=== PATIENT | male | born 1955 | race Caucasian/White ===

== ENCOUNTER 2017-08-28 13:45 | Inpatient (IN) | payer MEDICAID, OTHER ==
[~2017-08-28] VITALS: Ht 167.6 cm; Wt 71.4 kg
[2017-08-28 14:18] VITALS: BP 124/88; PULSE 80; RESP 22; TEMP 98.5; O2SAT 99
[2017-08-28 15:28] LABS: AUTOMATED NEUTROPHIL # 6.4 TH/MM3 (1.8-7.7); BASOPHIL % 0.4 % (0.0-2.0); EOSINOPHIL # 0.1 TH/MM3 (0-0.4); EOSINOPHIL % 1.2 % (0.0-4.0); HEMATOCRIT 44.6 % (39.0-51.0); HEMOGLOBIN 16.3 GM/DL (13.0-17.0); LYMPH % 20.2 % (9.0-44.0); LYMPHOCYTE # 1.8 TH/MM3 (1.0-4.8); MEAN CELL VOLUME 87.3 FL (80.0-100.0); MEAN CORPUSCULAR HEMOGLOBIN 31.9 PG (27.0-34.0); MEAN PLATELET VOLUME 8.4 FL (7.0-11.0); MONO % 6.9 % (0.0-8.0); MONOCYTE # 0.6 TH/MM3 (0-0.9); NEUT % 71.3 % (16.0-70.0); PLATELET COUNT 200 TH/MM3 (150-450); RED BLOOD COUNT 5.11 MIL/MM3 (4.50-5.90); RED CELL DISTRIBUTION WIDTH 12.5 % (11.6-17.2)
[2017-08-28 15:35] LABS: MEAN CORPUSCULAR HGB CONC 36.5 % (32.0-36.0)
[2017-08-28 15:46] LABS: AST (GOT) 19 U/L (15-37); BICARBONATE 26.1 MEQ/L (21.0-32.0); BLOOD UREA NITROGEN 5 MG/DL (7-18); CALCIUM 8.9 MG/DL (8.5-10.1); CHLORIDE 104 MEQ/L (98-107); CREATININE 0.93 MG/DL (0.60-1.30); GLOMERULAR FILTRATION RATE 83 ML/MIN (>89); GLUCOSE,RANDOM 81 MG/DL (74-106); SODIUM (NA) 138 MEQ/L (136-145)
[2017-08-28 15:58] LABS: ALKALINE PHOSPHATASE 105 U/L (45-117); ALT (GPT) 26 U/L (12-78); TOTAL BILIRUBIN ADULT 0.6 MG/DL (0.2-1.0); TOTAL PROTEIN 7.5 GM/DL (6.4-8.2)
[2017-08-28] MEDS ORDERED: LORazepam 1 MG TAB PO ONE ×2 (17:00→19:15)
--- NOTE | 2017-08-28 17:58 | PD ---
HPI Chief Complaint: Psychiatric Symptoms Time Seen by Provider: 17:01 Travel History International Travel<30 days: No Contact w/Intl Traveler<30days: No Traveled to known affect area: No History of Present Illness HPI 61-year-old male presents to the emergency department requesting medication refills and requesting to see psychiatry. He has history of bipolar disorder and has apparently been off of his medications for a few weeks. He is pacing around the room. He cannot get his thoughts out completely. He appears anxious. He is alert and oriented 4. He says he was sent here by [facility] and does not know why. Patient denies suicidal or homicidal ideations. Denies illicit drug use, EtOH, tobacco use. Denies auditory or visual hallucinations. Symptoms are moderate to severe in severity. Unknown onset. Unknown duration. No known relieving or aggravating factors. No primary care provider. Says he just moved here from [place]. No known allergies. History of chronic back pain and bipolar disorder. He can't tell me what medications he is on. He denies other emergent medical complaints. No other modifying factors or associated signs and symptoms. [facility] Past Medical History Diminished Hearing: No Social History Alcohol Use: No Tobacco Use: No Substance Use: No Allergies-Medications (Allergen,Severity, Reaction): Coded Allergies: No Known Allergies (Unverified , 08/28/17) Review of Systems Except as stated in HPI: all other systems reviewed are Neg Physical Exam Narrative GENERAL: Well-nourished, well-developed male patient, in no acute distress; anxious appearing, pacing SKIN: Warm and dry. HEAD: Atraumatic. Normocephalic. EYES: Pupils equal and round. ENT: Mucosa pink and moist. NECK: Supple. Trachea midline. CARDIOVASCULAR: Regular rate and rhythm. No murmur appreciated. RESPIRATORY: No accessory muscle use. Clear to auscultation. Breath sounds equal bilaterally. GASTROINTESTINAL: Abdomen soft, non-tender, nondistended. Hepatic and splenic margins not palpable. Bowel sounds are active 4 quadrants. MUSCULOSKELETAL: No obvious deformities. No clubbing. No cyanosis. No edema. NEUROLOGICAL: Awake and alert. Oriented 4. No obvious cranial nerve deficits. Motor grossly within normal limits. Normal speech. Moves all extremities. 5/5 strength to all extremities. PSYCHIATRIC: No delusional thought processes. No hallucinations. Data Data Last Documented VS Vital Signs Date Time Temp Pulse Resp B/P (MAP) Pulse Ox O2 Delivery O2 Flow Rate FiO2 08/28/17 14:18 98.5 80 22 124/88 (100) 99 Orders Orders Complete Blood Count With Diff (08/28/17 14:23) Comprehensive Metabolic Panel (08/28/17 14:23) Thyroid Stimulating Hormone (08/28/17 14:23) Psych Screen (08/28/17 14:23) Drug Screen, Random Urine (08/28/17 14:23) Lorazepam (Ativan) (08/28/17 17:00) Ct Brain W/O Iv Contrast(Rout) (08/28/17 ) Labs Laboratory Tests Test 08/28/17 15:00 White Blood Count 9.0 TH/MM3 Red Blood Count 5.11 MIL/MM3 Hemoglobin 16.3 GM/DL Hematocrit 44.6 % Mean Corpuscular Volume 87.3 FL Mean Corpuscular Hemoglobin 31.9 PG Mean Corpuscular Hemoglobin Concent 36.5 % Red Cell Distribution Width 12.5 % Platelet Count 200 TH/MM3 Mean Platelet Volume 8.4 FL Neutrophils (%) (Auto) 71.3 % Lymphocytes (%) (Auto) 20.2 % Monocytes (%) (Auto) 6.9 % Eosinophils (%) (Auto) 1.2 % Basophils (%) (Auto) 0.4 % Neutrophils # (Auto) 6.4 TH/MM3 Lymphocytes # (Auto) 1.8 TH/MM3 Monocytes # (Auto) 0.6 TH/MM3 Eosinophils # (Auto) 0.1 TH/MM3 Basophils # (Auto) 0.0 TH/MM3 CBC Comment AUTO DIFF Differential Comment AUTO DIFF CONFIRMED Platelet Estimate NORMAL Platelet Morphology Comment NORMAL Blood Urea Nitrogen 5 MG/DL Creatinine 0.93 MG/DL Random Glucose 81 MG/DL Total Protein 7.5 GM/DL Albumin 4.0 GM/DL Calcium Level 8.9 MG/DL Alkaline Phosphatase 105 U/L Aspartate Amino Transf (AST/SGOT) 19 U/L Alanine Aminotransferase (ALT/SGPT) 26 U/L Total Bilirubin 0.6 MG/DL Sodium Level 138 MEQ/L Potassium Level 3.9 MEQ/L Chloride Level 104 MEQ/L Carbon Dioxide Level 26.1 MEQ/L Anion Gap 8 MEQ/L Estimat Glomerular Filtration Rate 83 ML/MIN Thyroid Stimulating Hormone 3rd Gen 1.870 uIU/ML Urine Opiates Screen NEG Urine Barbiturates Screen NEG Urine Amphetamines Screen NEG Urine Benzodiazepines Screen NEG Urine Cocaine Screen NEG Urine Cannabinoids Screen NEG MDM Medical Decision Making Medical Screen Exam Complete: Yes Emergency Medical Condition: Yes Medical Record Reviewed: Yes Differential Diagnosis Bipolar disorder, manic, medication refill, encounter for psychological evaluation Narrative Course Patient presents voluntarily. Physical examination and vital signs are essentially unremarkable. Patient has no medical complaints to report. Psych screen has been ordered. If the laboratory results are unremarkable, the patient will be medically cleared for psychiatric evaluation and disposition. Patient has never been seen here before. I will order CT scan to rule out acute process. CT head ordered. 1 mg by mouth Ativan was previously ordered. 1848: CT head with no acute findings. Patient medically cleared for psych evaluation. Diagnosis Primary Impression: Encounter for psychological evaluation Condition: Stable Leta Pascual Aug 28, 2017 17:58
--- NOTE | 2017-08-28 18:42 | RADRPT ---
EXAM DATE/TIME: 08/28/2017 18:24 [facility] COMPARISON: No previous studies available for comparison. INDICATIONS : Altered mental status. RADIATION DOSE: 36.73 CTDIvol (mGy) MEDICAL HISTORY : Bipolar disorder. SURGICAL HISTORY : None. ENCOUNTER: Initial ACUITY: 1 day PAIN SCALE: 0/10 LOCATION: cranial TECHNIQUE: Multiple contiguous axial images were obtained of the head. Using automated exposure control and adj ustment of the mA and/or kV according to patient size, radiation dose was kept as low as reasonably a chievable to obtain optimal diagnostic quality images. DICOM format image data is available electro nically for review and comparison. FINDINGS: CEREBRUM: The ventricles are normal for age. No evidence of midline shift, mass lesion, hemorrhage or acute in farction. No extra-axial fluid collections are seen. POSTERIOR FOSSA: The cerebellum and brainstem are intact. The 4th ventricle is midline. The cerebellopontine angle i s unremarkable. EXTRACRANIAL: The visualized portion of the orbits is intact. SKULL: The calvaria is intact. No evidence of skull fracture. CONCLUSION: 1. Negative noncontrast CT brain. Stewart Mondragon MD on August 28, 2017 at 18:40 Board Certified Radiologist. This report was verified electronically.
[2017-08-29 02:43] VITALS: BP 128/81; PULSE 61; RESP 16; TEMP 98.7; O2SAT 97
[2017-08-29] MEDS ORDERED: LORazepam 2 MG/ML VIAL IM ONE (02:45)
[2017-08-29 06:30] VITALS: BP_SYST 143; BP_SYST 153; BP_DIAS 79; BP_DIAS 89; PULSE 69; PULSE 82; RESP 17; TEMP 98.1; O2SAT 100
--- NOTE | 2017-08-29 14:08 | PD ---
History of Present Illness Chief Complaint: Psychiatric Symptoms Time Seen by Provider: 13:20 Travel History International Travel<30 Days: No Contact w/Intl Traveler<30days: No Known affected area: No Legal Status Legal Status: Voluntary History of Present Illness: History of Present Illness HPI 61-year-old, , white male, with reported history of bipolar disorder, alcohol abuse in sustained remission, who moved to [place] 4 months ago and has since he ran out of his psychiatric medication , who presents to the emergency department on a voluntary status requesting medication refills and requesting to see psychiatry. He reports that he went to the Medicaid office in order to get his medical card and was referred to [facility]. While in the ED the provider reports that" the patient was pacing around the room, cannot get his thoughts are completely, appears anxious." He was given Ativan in the ED. EMR is reviewed. No previous contact with [facility] psychiatry. Current toxicology is negative for any substances. Patient is seen. He is alert, oriented, dressed in hospital gown and maintaining basic hygiene. He is observed pacing around the room and appears anxious. He maintains his head in a downward posture with limited amount of eye contact. He is irritable. His speech is clear although is over inclusive. He answers most questions with either I don't know or I don't remember" and requires multiple attempts for him to answer the question. An example is he is unable to say whether he has a Medicare card or not. Also when asked about previous medication he does state that in the past he has been treated with Depakote, Cymbalta, trazodone, Ambien, Klonopin, Risperdal, and gabapentin amongst others. He is unable to tell me what were his last prescribed medication. There is no psychosis, no delusional material elicited, no paranoia. He does not present any suicidal or homicidal ideation although he does state " that I just don't want to be". He also reports that for the past several weeks he has been unable to sleep for more than 1-2 hours, has had mood swings and mood lability, decreased appetite with weight loss, can't think straight, irritable, anxious with panic attacks. PFSH Past Medical History Diminished Hearing: No Psychiatric History Psychiatric History Hx Psychiatric Treatment: WAS DIAGNOSED WITH BIPOLAR IN THE . HAD ALWAYS RECIEVED OUTPATIENT CARE IN [place]. Denies any history of inpatient treatment. Denies any previous suicide attempt. History of Inpatient Treatment: No Guns or firearms in home: No Social History Born in [place]. since the and has no children. Completed the 10th grade education. 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 Has been on disability for 20 years due to psychiatric reasons. He moved to [place] for months ago for unknown reason. Lives by himself. Hx Alcohol Use: No Hx Tobacco Use: No Hx Substance Use: Yes (history of alcohol abuse. Sober since 1992. Has used AA in the past.) Substance Use Type: Alcohol Hx of Substance Use Treatment: Yes Family Psychiatric History Negative Allergies-Medications (Allergen,Severity, Reaction): Coded Allergies: No Known Allergies (Unverified , 08/28/17) Review of Systems Psychiatric: COMPLAINS OF: Anxiety, Mood changes Except as stated in HPI: all other systems reviewed are Neg Mental Status Examination Appearance: Appropriate (in hospital [facility]) Consciousness: Alert Orientation: x4 Motor Activity: Normal gait Speech: Unremarkable, Other (overinclusive) Language: Adequate Fund of Knowledge: Adequate Attention and Concentration: Other (difficulty concentration) Memory: Impaired (answers most questions with " I don't remember") Mood: Anxious, Irritable Affect: Anxious Thought Process & Associations: Intact Thought Content: Appropriate Hallucination Type: None Delusion Type: None Suicidal Ideation: No Suicidal Plan: No Suicidal Intention: No Homicidal Ideation: No Homicidal Plan: No Homicidal Intention: No Insight: Adequate Judgment: Impulsive [facility] Medical Decision Making Assessment/Plan 61-year-old, , white male, with reported history of bipolar disorder, alcohol abuse in sustained remission, who moved to [place] 4 months ago and has since he ran out of his psychiatric medication , who presents to the emergency department on a voluntary status requesting medication refills and requesting to see psychiatry. He also reports that for the past several weeks he has been unable to sleep for more than 1-2 hours, has had mood swings and mood lability, decreased appetite with weight loss, can't think straight, irritable, anxious with panic attacks. At this time the patient meets criteria for inpatient psychiatric treatment for further evaluation, stabilization, and to initiate treatment with medications. Orders Orders Complete Blood Count With Diff (08/28/17 14:23) Comprehensive Metabolic Panel (08/28/17 14:23) Thyroid Stimulating Hormone (08/28/17 14:23) Psych Screen (08/28/17 14:23) Drug Screen, Random Urine (08/28/17 14:23) Lorazepam (Ativan) (08/28/17 17:00) Ct Brain W/O Iv Contrast(Rout) (08/28/17 ) Lorazepam (Ativan) (08/28/17 19:15) Lorazepam Inj (Ativan Inj) (08/29/17 02:45) Diet Regular Basic (08/29/17 Breakfast) Diet Regular Basic (08/29/17 Lunch) Results Vital Signs Date Time Temp Pulse Resp B/P (MAP) Pulse Ox O2 Delivery O2 Flow Rate FiO2 08/29/17 06:30 98.1 69 17 143/79 (100) 100 Room Air 08/29/17 02:43 98.7 61 16 128/81 (97) 97 Room Air 08/28/17 14:18 98.5 80 22 124/88 (100) 99 Laboratory Tests Test 08/28/17 15:00 White Blood Count 9.0 Red Blood Count 5.11 Hemoglobin 16.3 Hematocrit 44.6 Mean Corpuscular Volume 87.3 Mean Corpuscular Hemoglobin 31.9 Mean Corpuscular Hemoglobin Concent 36.5 Red Cell Distribution Width 12.5 Platelet Count 200 Mean Platelet Volume 8.4 Neutrophils (%) (Auto) 71.3 Lymphocytes (%) (Auto) 20.2 Monocytes (%) (Auto) 6.9 Eosinophils (%) (Auto) 1.2 Basophils (%) (Auto) 0.4 Neutrophils # (Auto) 6.4 Lymphocytes # (Auto) 1.8 Monocytes # (Auto) 0.6 Eosinophils # (Auto) 0.1 Basophils # (Auto) 0.0 CBC Comment AUTO DIFF Differential Comment AUTO DIFF CONFIRMED Platelet Estimate NORMAL Platelet Morphology Comment NORMAL Blood Urea Nitrogen 5 Creatinine 0.93 Random Glucose 81 Total Protein 7.5 Albumin 4.0 Calcium Level 8.9 Alkaline Phosphatase 105 Aspartate Amino Transf (AST/SGOT) 19 Alanine Aminotransferase (ALT/SGPT) 26 Total Bilirubin 0.6 Sodium Level 138 Potassium Level 3.9 Chloride Level 104 Carbon Dioxide Level 26.1 Anion Gap 8 Estimat Glomerular Filtration Rate 83 Thyroid Stimulating Hormone 3rd Gen 1.870 Urine Opiates Screen NEG Urine Barbiturates Screen NEG Urine Amphetamines Screen NEG Urine Benzodiazepines Screen NEG Urine Cocaine Screen NEG Urine Cannabinoids Screen NEG Diagnosis Primary Impression: Encounter for psychological evaluation Additional Impressions: Bipolar disorder Alcohol dependence Admitting Information Admitting Physician Requests: Admit Condition: Stable Problem Qualifiers Additional Impressions: Bipolar disorder Qualified Codes: F31.62 - Bipolar disorder, current episode mixed, moderate Alcohol dependence Qualified Codes: F10.21 - Alcohol dependence, in remission Brii Wallace Aug 29, 2017 14:08
[2017-08-29] MEDS ORDERED: MAGNESIUM HYDROXIDE SUSP 30 ML CUP PO PRN (14:15)
[2017-08-29] MEDS ORDERED: ALUMINUM/MAGNESIUM/SIMETH 30 ML CUP PO PRN (14:15)
[2017-08-29 14:46] VITALS: BP 132/92; TEMP 97.8; O2SAT 99
[2017-08-29 14:50] VITALS: BP 132/92; PULSE 66; RESP 22; O2SAT 99
[2017-08-29] MEDS ORDERED: OLANZapine ODT 10 MG TAB PO ONE (15:00)
[2017-08-29 17:43] VITALS: BP 130/69; PULSE 77; RESP 20; TEMP 97.7; O2SAT 99
[2017-08-30 05:22] VITALS: BP 133/70; PULSE 72; RESP 16; TEMP 98; O2SAT 99
[2017-08-30] MEDS ORDERED: PNEUMOCOCCAL POLYVALENT INJ 25 MCG/0.5 ML SYR IM ONE (10:00)
[2017-08-30] MEDS ORDERED: INFLUENZA VIRUS VACCINE (QUADRIVALENT) 0.5 ML SYR IM ONE (10:00)
--- NOTE | 2017-08-30 10:19 | HHI.HP ---
Provisional Diagnosis Admission Date Aug 29, 2017 at 14:13 [place] [facility] I. 1. Bipolar disorder, presently manic, moderate 2. History of alcohol use disorder [facility] II. Deferred Certification of Person's Competence To Provide Express and Informed Consent I have personally examined Basim Vazquez , a person being served at [facility] on, Aug 30, 2017 10:19. Express and informed consent means consent voluntarily given in writing, by a competent person, after sufficient explanation and disclosure of the subject matter involved to enable the person to make a knowing and willful decision without any element of force, fraud, deceit, duress, or other form of constraint or coercion. This person is 18 years of age or older, is not now known to be incompetent to consent to treatment with a guardian advocate, and does not have a health care surrogate or proxy currently making medical treatment decisions. I have found this person to be one of the following: [x] Competent to provide express and informed consent, as defined above, for voluntary admission to this facility and is competent to provide express and informed consent for treatment. He/she has the consistent capacity to make well reasoned, willful, and knowing decisions concerning his or her medical or mental health treatment. The person fully and consistently understands the purpose of the admission for examination/placement and is fully capable of personally exercising all rights assured under [place] Incompetent to provide express and informed consent to voluntary admission, and this is incompetent to provide express and informed consent to treatment. The person must be transferred to involuntary status and a petition for a guardian advocate filed with the Circuit Court. [] Refusing to provide express and informed consent to voluntary admission but is competent to provide express and informed consent for treatment. The person must be discharged or transferred to involuntary status. Form shall be completed within 24 hours of a person's arrival at the receiving facility and filed in the clinical record of each person: 1. Admitted on a voluntary basis 2. Permitted to provide express and informed consent to his/her own treatment 3. Allowed to transfer from involuntary to voluntary status 4. Prior to permitting a person to consent to his or her own treatment after having been previously found incompetent to consent to treatment. History of Present Illness Capacity: Has Capacity Psych Chief Complaint: "All I need is something for the problems that I have." HPI Mr. Vazquez is a 61-year-old male with a reported history of bipolar disorder who presented to the emergency department voluntarily for psychiatric evaluation. He was evaluated by the psychiatric nurse practitioner who recommended admission to the inpatient psychiatric unit. Reviewing the electronic medical record, I note this is patient's first visit to [facility]. Patient seen and examined. Chart reviewed. Case discussed with nursing staff. On my examination today, the patient is quite irritable and somewhat oppositional. His speech is rapid and difficult to interrupt. His thought process is tangential with loosening of associations. He says of his mood state "it's worse than it's ever been." He complains of feeling "disconnected. " He reports poor sleep. Possibly some increased goal-directed activity. Denies any SI or HI. Denies any AVH. No delusional material elicited. No depressive symptoms. The remainder of the psychiatric ROS is negative. Complains of chronic back pain and herpes labialis. No other physical complaints. Past psychiatric history: The patient reports a history of bipolar disorder. He reports that he has been away from outpatient psychiatric treatment for several months, most recently in [place]. He denies a history of psychiatric admissions or suicide attempts. Patient is unsure of previous medication trials. We were unable to obtain medication list from pharmacy in [place] which included Cymbalta, trazodone, Ambien and Klonopin, although the patient has apparently not taken psychotropic medications in several months at least. Family history: The patient reports that his mother has some sort of mental illness although he is unsure of the diagnosis. No reported family history of suicide. Chemical dependency history: The patient reports that he quit drinking in 1992. He denies any substance use presently. Social history: Patient is presently living alone. He is single with no children. He denies any access to guns or firearms. He denies any or legal history. Review of Systems ROS Limitations: Poor Historian Except as stated in HPI: all other systems reviewed are Neg Past Family Social History Coded Allergies: No Known Allergies (Unverified , 08/28/17) Past Medical History Patient endorses a history of chronic neck and back pain on gabapentin and herpes labialis on acyclovir. Current Medications Medications (Trade) Dose Ordered Sig/Kishore Route Start Time Stop Time Status Last Admin (Tylenol) 650 mg Q4H PRN PO 08/29/17 14:15 (Milk Of Magnesia Liq) 30 ml DAILY PRN PO 08/29/17 14:15 (Mag-Al Plus Susp Liq) 30 ml Q6H PRN PO 08/29/17 14:15 Patient's Strengths (min. 2) In a monitored setting. Verbally fluent. Physical Exam Physical examination completed by ED provider. On my examination today, the patient appears to be in no acute physical distress. I do note characteristic herpes labialis lesions, particularly on his upper lip. No motor abnormalities noted. Labs and vitals reviewed: Vital Signs Vital Signs Date Time Temp Pulse Resp B/P (MAP) Pulse Ox O2 Delivery O2 Flow Rate FiO2 08/30/17 05:22 98.0 72 16 133/70 (91) 99 08/29/17 14:50 Room Air I/O 08/30/17 08/30/17 08/31/17 08:00 16:00 00:00 Intake Total 360 ml Balance 360 ml Lab Results Item Value Date Time White Blood Count 9.0 TH/MM3 08/28/17 1500 Hemoglobin 16.3 GM/DL 08/28/17 1500 Platelet Count 200 TH/MM3 08/28/17 1500 Sodium Level 140 MEQ/L 08/30/17 0850 Potassium Level 3.9 MEQ/L 08/30/17 0850 Chloride Level 106 MEQ/L 08/30/17 0850 Carbon Dioxide Level 27.0 MEQ/L 08/30/17 0850 Blood Urea Nitrogen 12 MG/DL 08/30/17 0850 Creatinine 0.87 MG/DL 08/30/17 0850 Estimat Glomerular Filtration Rate 90 ML/MIN 08/30/17 0850 Aspartate Amino Transf (AST/SGOT) 19 U/L 08/28/17 1500 Alanine Aminotransferase (ALT/SGPT) 26 U/L 08/28/17 1500 Alkaline Phosphatase 105 U/L 08/28/17 1500 Vitamin B12 Level 314 PG/ML 08/30/17 0850 25-Hydroxy Vitamin D Total 21.2 ng/ML L 08/30/17 0850 Thyroid Stimulating Hormone 3rd Gen 1.870 uIU/ML 08/28/17 1500 Urine Opiates Screen NEG 08/28/17 1500 Urine Barbiturates Screen NEG 08/28/17 1500 Urine Benzodiazepines Screen NEG 08/28/17 1500 Urine Amphetamines Screen NEG 08/28/17 1500 Urine Cocaine Screen NEG 08/28/17 1500 Urine Cannabinoids Screen NEG 08/28/17 1500 Mental Status Examination Appearance: Appropriate Consciousness: Alert Orientation: x4 Motor Activity: Other (no motor abnormalities noted) Speech: Rapid Language: Adequate Fund of Knowledge: Adequate Attention and Concentration: Easily Distracted Memory: Unremarkable Mood: Anxious, Irritable Affect: Irritable, Anxious Thought Process & Associations: Loose associations, Tangential Thought Content: Appropriate Hallucination Type: None Delusion Type: None Suicidal Ideation: No Suicidal Plan: No Suicidal Intention: No Homicidal Ideation: No Homicidal Plan: No Homicidal Intention: No Insight: Fair Judgment: Impulsive Assessment & Plan Problem List: (1) Bipolar disorder ICD Codes: F31.9 - Bipolar disorder, unspecified Status: Acute Assessment & Plan 61-year-old male with psychiatric history as detailed above who presents voluntarily for psychiatric evaluation. On my examination today, the patient presents in a manic state of moderate severity. Patient's most recent outpatient regimen was devoid of any mood stabilizing agent, and the patient is in need of mood stabilization now. I will plan to admit the patient to the inpatient unit for observation and stabilization. Admit inpatient. Voluntary status. Initiate Depakote ER 20mg/kg x 65.8kg ~= 1250mg daily for mood stabilization. LFTs and plt ok. Check a VPA and ammonia level after the appropriate interval. For further mood stabilization and to assist with sleep initiate Zyprexa Zydis 10 mg at bedtime with plans to titrate to effect. Check EKG for QTc. Resume acyclovir and gabapentin. Consult to the hospitalist for further medical management. Ativan as needed for anxiety, Cogentin as needed for EPS. R/B/A for meds discussed with patient. Vitals every shift. Counselor to see. Disposition planning. Estimated length of stay : 5-7 days. Discharge Planning Pending psychiatric stabilization Request HC Surrog/Guard Advoc?: No Problem Qualifiers (1) Bipolar disorder: Qualified Codes: F31.12 - Bipolar disorder, current episode manic without psychotic features, moderate Phan Ball MD Aug 30, 2017 10:19
[2017-08-30 10:22] LABS: BLOOD UREA NITROGEN 12 MG/DL (7-18); CALCIUM 8.8 MG/DL (8.5-10.1); CHLORIDE 106 MEQ/L (98-107); CREATININE 0.87 MG/DL (0.60-1.30); GLOMERULAR FILTRATION RATE 90 ML/MIN (>89); GLUCOSE,RANDOM 68 MG/DL (74-106); SODIUM (NA) 140 MEQ/L (136-145)
[2017-08-30 10:23] LABS: CHOLESTEROL 153 MG/DL (120-200); TRIGLYCERIDES 238 MG/DL (42-150)
[2017-08-30 10:49] LABS: LDL CHOLESTEROL 71 MG/DL (0-99)
[2017-08-30] MEDS ORDERED: LORazepam 2 MG/ML VIAL IM PRN (11:00)
[2017-08-30] MEDS: DIVALPROEX SODIUM E.R. 250 MG TAB PO SCH ×2 (11:14→11:47)
[2017-08-30] MEDS: DIVALPROEX SODIUM E.R. 500 MG TAB PO SCH (11:46)
[2017-08-30] MEDS: GABAPENTIN 300 MG CAP PO SCH ×2 (12:33→17:47)
[2017-08-30] MEDS: ACYCLOVIR 200 MG CAP PO SCH ×2 (12:59→21:44)
[2017-08-30] MEDS ORDERED: BENZTROPINE MESYLATE 1 MG TAB PO PRN (13:45)
[2017-08-30] MEDS ORDERED: BENZTROPINE MESYLATE 2 MG/2 ML VIAL IM PRN (13:45)
[2017-08-30 16:35] LABS: HEMOGLOBIN A1C 4.9 % (4.3-6.0)
--- NOTE | 2017-08-30 17:30 | PD.CONS ---
HPI Service [facility] Hospitalists Consult Requested By Psychiatry Reason for Consult Medical management Primary Care Physician No Primary Care Physician Diagnoses: History of Present Illness Mr. Vazquez is a pleasant 61-year-old male with a history of bipolar disorder, oral herpes, chronic back pain who was admitted due to bipolar disorder. Hospital service was consulted for medical management. At the time of this interview, patient is resting in bed. However he appears to be very anxious. He reports ap operator chronic back pain. He apparently has had extensive workup done including MRI studies in [place]. He has tried Lyrica before for neuropathic pain. However, gabapentin seems to work better. Additionally he reports that for oral is he has been using acyclovir p.o. for suppression. At the time of this interview, patient denies any chest pain, shortness of breath, fever or chills. Review of Systems Except as stated in HPI: all other systems reviewed are Neg Past Family Social History Allergies: Coded Allergies: No Known Allergies (Unverified , 08/28/17) Past Medical History Chronic back pain Bipolar disorder Oral herpes Past Surgical History No significant surgeries in the past Reported Medications Current Medications Medications (Trade) Dose Ordered Sig/Kishore Route Start Time Stop Time Status Last Admin (Tylenol) 650 mg Q4H PRN PO 08/29/17 14:15 08/30/17 22:12 (Milk Of Magnesia Liq) 30 ml DAILY PRN PO 08/29/17 14:15 (Mag-Al Plus Susp Liq) 30 ml Q6H PRN PO 08/29/17 14:15 (Depakote Er) 1,000 mg DAILY PO 08/30/17 12:00 08/30/17 11:46 (ZyPREXA ZYDIS ODT) 10 mg HS PO 08/30/17 21:00 08/30/17 21:44 (Ativan) 1 mg Q6H PRN PO 08/30/17 11:00 08/30/17 22:12 (Ativan Inj) 1 mg Q6H PRN IM 08/30/17 11:00 (Neurontin) 300 mg TID PO 08/30/17 13:00 08/30/17 17:47 (Zovirax) 400 mg Q8HR PO 08/30/17 14:00 08/30/17 21:44 (Depakote Er) 250 mg DAILY PO 08/30/17 12:00 3/9/18 11:47 (Cogentin Inj) 1 mg Q12HR PRN IM 08/30/17 13:45 (Cogentin) 1 mg Q12HR PRN PO 08/30/17 13:45 Family History Mother had cancer, father had heart disease Social History Patient denies using tobacco, alcohol, illicit drugs. Physical Exam Vital Signs Vital Signs Date Time Temp Pulse Resp B/P (MAP) Pulse Ox O2 Delivery O2 Flow Rate FiO2 08/30/17 05:22 98.0 72 16 133/70 (91) 99 08/29/17 17:43 97.7 77 20 130/69 (89) 99 Physical Exam GENERAL: This is a well-nourished, well-developed patient, in no apparent distress. Somewhat anxious appearance SKIN: No rashes, ecchymoses or lesions. Warm and dry. Oral herpes lesion noted on the lower lip. HEAD: Atraumatic. Normocephalic. No temporal or scalp tenderness. EYES: Pupils equal round and reactive. No injection or drainage. ENT: Nose without bleeding, purulent drainage or septal hematoma. Airway patent. NECK: Trachea midline. No lymphadenopathy. Supple, nontender, no meningeal signs. CARDIOVASCULAR: Regular rate and rhythm without murmurs, gallops, or rubs. No JVD. RESPIRATORY: Clear to auscultation. Breath sounds equal bilaterally. No wheezes , rales, or rhonchi. GASTROINTESTINAL: Abdomen soft, non-tender, nondistended. No guarding. MUSCULOSKELETAL: Extremities without clubbing, cyanosis, or edema. NEUROLOGICAL: Awake and alert. Cranial nerves II through XII intact. No focal neurological deficits. Normal speech. Laboratory Laboratory Tests Test 08/30/17 08:50 Blood Urea Nitrogen 12 Creatinine 0.87 Random Glucose 68 Calcium Level 8.8 Sodium Level 140 Potassium Level 3.9 Chloride Level 106 Carbon Dioxide Level 27.0 Anion Gap 7 Estimat Glomerular Filtration Rate 90 Hemoglobin A1c 4.9 Triglycerides Level 238 Cholesterol Level 153 LDL Cholesterol 71 HDL Cholesterol 34.0 Cholesterol/HDL Ratio 4.50 Vitamin B12 Level 314 25-Hydroxy Vitamin D Total 21.2 Result Diagram: 08/28/17 1500 08/30/17 0850 Imaging Last Impressions Head CT 08/28/17 0000 Signed Impressions: Service Date/Time: Monday, August 28, 2017 18:24 - CONCLUSION: 1. Negative noncontrast CT brain. Stewart Mondragon MD Assessment and Plan Assessment and Plan Mr. Vazquez is a pleasant 61-year-old male with a history of bipolar disorder, oral herpes, chronic back pain who was admitted to psychiatric unit due to bipolar disorder. Hospitalist service was consulted for oral herpes as well as back pain. Patient has had extensive workup in the outpatient setting with regards to his back pain. He reports gabapentin is very helpful. -Bipolar disorder -management per psychiatry. -Chronic back pain -Long-standing back pain. Continue gabapentin. -We will add muscle relaxer as needed -Acetaminophen, naproxen can be used additionally for pain. -Oral herpes -Continue acyclovir for chronic suppression. Full code. Ambulation. Pat Hargrove DO Aug 30, 2017 17:30
[2017-08-30] MEDS: ACETAMINOPHEN 325 MG TAB PO PRN ×2 (17:54→22:12)
[2017-08-30 18:45] VITALS: BP 117/74; PULSE 65; RESP 16; TEMP 97.7; O2SAT 99
[2017-08-30] MEDS: OLANZapine ODT 10 MG TAB PO SCH (21:44)
[2017-08-30] MEDS: LORazepam 1 MG TAB PO PRN (22:12)
[2017-08-31 06:00] VITALS: BP 147/70; PULSE 71; RESP 16; TEMP 97.6; O2SAT 98
[2017-08-31] MEDS: ACYCLOVIR 200 MG CAP PO SCH ×3 (06:00→21:33)
[2017-08-31] MEDS: DIVALPROEX SODIUM E.R. 500 MG TAB PO SCH (08:23)
[2017-08-31] MEDS: DIVALPROEX SODIUM E.R. 250 MG TAB PO SCH (08:23)
[2017-08-31] MEDS: BACLOFEN 10 MG TAB PO PRN ×2 (08:23→21:34)
[2017-08-31] MEDS: GABAPENTIN 300 MG CAP PO SCH ×3 (08:23→17:14)
[2017-08-31] MEDS: NAPROXEN 375 MG TAB PO PRN ×2 (08:23→21:33)
--- NOTE | 2017-08-31 15:28 | HHI.PR ---
Subjective Remarks Follow-up visit chronic back pain, oral herpes. Patient seen and examined today. Reports he is doing well. States that acyclovir has been working. His mouth sores and gum sores have all diminished. He also reports that when he has a flare up, his nasal area is also affected. States that it has been improved and has not noticed any bleeding on his nose or any irritation. Patient states that the muscle relaxers are also working good for him and he is able to move around better. Objective Vitals Vital Signs Date Time Temp Pulse Resp B/P (MAP) Pulse Ox O2 Delivery O2 Flow Rate FiO2 08/31/17 06:00 97.6 71 16 147/70 (95) 98 08/30/17 23:12 20 08/30/17 18:45 97.7 65 16 117/74 (88) 99 I/O 08/30/17 08/30/17 08/30/17 08/31/17 08/31/17 08/31/17 07:00 15:00 23:00 07:00 15:00 23:00 Intake Total 480 ml 840 ml Balance 480 ml 840 ml Intake Oral 480 ml 840 ml Result Diagram: 08/28/17 1500 08/30/17 0850 Objective Remarks GENERAL: This is a well-nourished, well-developed patient, in no apparent distress. SKIN: Warm and dry. HEENT: Normocephalic. Pupils equal round and reactive. Nose without bleeding. Airway patent. NECK: Trachea midline. CARDIOVASCULAR: Regular rate and rhythm without murmurs, gallops, or rubs. RESPIRATORY: Clear to auscultation. Breath sounds equal bilaterally. No wheezes , rales, or rhonchi. GASTROINTESTINAL: Abdomen soft, non-tender, nondistended. Bowel Sounds normoactive x4. MUSCULOSKELETAL: Extremities without clubbing, cyanosis, or edema. RUE shoulder , scapular area tenderness to palpation and ROM NEUROLOGICAL: Awake and alert. Oriented to place, person. No focal neuro deficit. Moves all extremities. Normal speech. A/P Problem List: (1) Oral herpes ICD Code: B00.2 - Herpesviral gingivostomatitis and pharyngotonsillitis (2) Bipolar disorder ICD Code: F31.9 - Bipolar disorder, unspecified Status: Acute (3) Alcohol dependence ICD Code: F10.20 - Alcohol dependence, uncomplicated Status: Acute Assessment and Plan 61-year-old male with a history of bipolar disorder, oral herpes, chronic back pain who was admitted to psychiatric unit due to bipolar disorder. Hospitalist service was consulted for oral herpes as well as back pain. Patient has had extensive workup in the outpatient setting with regards to his back pain. He reports gabapentin is very helpful. Bipolar disorder -management per psychiatry. Chronic back pain -Long-standing back pain. Continue gabapentin. -Baclofen 10 mg every 8 hours as needed -Acetaminophen, naproxen can be used additionally for pain. -Improved Oral herpes -Continue acyclovir for chronic suppression. -Improved DVT prop ambulation. Stable from Hospitalist standpoint. We will sign off. Reconsult as needed. Problem Qualifiers (1) Bipolar disorder: Qualified Codes: F31.12 - Bipolar disorder, current episode manic without psychotic features, moderate (2) Alcohol dependence: Qualified Codes: F10.21 - Alcohol dependence, in remission Karlo Sweeney Aug 31, 2017 15:28
--- NOTE | 2017-08-31 16:03 | HHI.PYPN ---
Subjective Chief Complaint: "All I need is something for the problems that I have." Remarks Pt seen and discussed with staff. Pt is hyperverbal, tangential and anxious. He has been compliant with medications. He states that he feels as if medication are helping him but cannot articulate how. No SI/HI. Mental Status Examination Appearance: Appropriate Consciousness: Alert Orientation: x4 Motor Activity: Other (no motor abnormalities noted) Speech: Rapid Language: Adequate Fund of Knowledge: Adequate Attention and Concentration: Easily Distracted Memory: Unremarkable Mood: Anxious, Irritable Affect: Irritable, Anxious Thought Process & Associations: Loose associations, Tangential Thought Content: Appropriate Hallucination Type: None Delusion Type: None Suicidal Ideation: No Suicidal Plan: No Suicidal Intention: No Homicidal Ideation: No Homicidal Plan: No Homicidal Intention: No Insight: Fair Judgment: Impulsive Results Vitals/IOs Vital Signs Date Time Temp Pulse Resp B/P (MAP) Pulse Ox O2 Delivery O2 Flow Rate FiO2 08/31/17 06:00 97.6 71 16 147/70 (95) 98 08/29/17 14:50 Room Air Assessment & Plan Problem List: (1) Bipolar disorder ICD Codes: F31.9 - Bipolar disorder, unspecified Status: Acute Assessment & Plan continue current tx plan. Estimated LOS: days Justification for Cont. Inpt. risk of decompensation Request HC Surrog/Guard Advoc?: No Problem Qualifiers (1) Bipolar disorder: Qualified Codes: F31.12 - Bipolar disorder, current episode manic without psychotic features, moderate Zara Ritchie MD Aug 31, 2017 16:03
[2017-08-31 18:06] VITALS: BP 147/70; PULSE 71; RESP 18; TEMP 97.6; O2SAT 98
[2017-08-31] MEDS: OLANZapine ODT 10 MG TAB PO SCH (21:33)
--- NOTE | 2017-08-31 23:35 | EKG ---
Date Performed: 08/30/2017 Time Performed: 13:15:12 PTAGE: 61 years EKG: SINUS BRADYCARDIA POSSIBLE LEFT ATRIAL ENLARGEMENT POSSIBLE RIGHT VENTRICULAR CONDUCTION DE LAY BORDERLINE ECG NO PREVIOUS TRACING DOCTOR: Darien Cabrera Interpretating Date/Time 08/31/2017 23:32:56
[2017-09-01 06:00] VITALS: BP 167/78; PULSE 98; RESP 19; TEMP 97.7; O2SAT 95
[2017-09-01] MEDS: ACYCLOVIR 200 MG CAP PO SCH ×3 (06:00→21:21)
[2017-09-01] MEDS: BACLOFEN 10 MG TAB PO PRN (08:20)
[2017-09-01] MEDS: GABAPENTIN 300 MG CAP PO SCH ×3 (08:20→17:20)
[2017-09-01] MEDS: DIVALPROEX SODIUM E.R. 250 MG TAB PO SCH (08:21)
[2017-09-01] MEDS: DIVALPROEX SODIUM E.R. 500 MG TAB PO SCH (08:21)
[2017-09-01 09:25] VITALS: BP 135/72; PULSE 102
[2017-09-01] MEDS: NAPROXEN 375 MG TAB PO PRN ×2 (14:47→21:23)
--- NOTE | 2017-09-01 15:21 | HHI.PYPN ---
Subjective Chief Complaint: "All I need is something for the problems that I have." Remarks Pt seen and discussed with staff. He reports that sleep was improved. He has been less hyperverbal today per staff. He remains anxious but has been participating in unit activities. Mental Status Examination Appearance: Appropriate Consciousness: Alert Orientation: x4 Motor Activity: Other (no motor abnormalities noted) Speech: Rapid Language: Adequate Fund of Knowledge: Adequate Attention and Concentration: Easily Distracted Memory: Unremarkable Mood: Anxious, Irritable Affect: Irritable, Anxious Thought Process & Associations: Tangential Thought Content: Appropriate Hallucination Type: None Delusion Type: None Suicidal Ideation: No Suicidal Plan: No Suicidal Intention: No Homicidal Ideation: No Homicidal Plan: No Homicidal Intention: No Insight: Fair Judgment: Impulsive Results Vitals/IOs Vital Signs Date Time Temp Pulse Resp B/P (MAP) Pulse Ox O2 Delivery O2 Flow Rate FiO2 09/01/17 09:25 102 135/72 (93) 09/01/17 06:00 97.7 19 95 08/29/17 14:50 Room Air Assessment & Plan Problem List: (1) Bipolar disorder ICD Codes: F31.9 - Bipolar disorder, unspecified Status: Acute Assessment & Plan Pt improving. Continue current tx plan. Estimated LOS: days Justification for Cont. Inpt. risk of decompensation Request HC Surrog/Guard Advoc?: No Problem Qualifiers (1) Bipolar disorder: Qualified Codes: F31.12 - Bipolar disorder, current episode manic without psychotic features, moderate Zara Ritchie MD Sep 01, 2017 15:21
[2017-09-01] MEDS ORDERED: PILL SPLITTER OTHER PRN (15:30)
[2017-09-01 17:00] VITALS: BP 131/67; PULSE 73; RESP 18; TEMP 97.7; O2SAT 100
[2017-09-01] MEDS: OLANZapine ODT 10 MG TAB PO SCH (21:21)
[2017-09-01] MEDS: BACLOFEN 20 MG TAB PO PRN (21:22)
[2017-09-01] MEDS: LORazepam 1 MG TAB PO PRN (21:23)
[2017-09-02 05:50] VITALS: BP 115/58; PULSE 58; RESP 16; TEMP 97.7; O2SAT 97
[2017-09-02] MEDS: ACYCLOVIR 200 MG CAP PO SCH ×3 (05:54→21:34)
[2017-09-02] MEDS: ACETAMINOPHEN 325 MG TAB PO PRN (05:55)
[2017-09-02] MEDS: DIVALPROEX SODIUM E.R. 250 MG TAB PO SCH (08:32)
[2017-09-02] MEDS: DIVALPROEX SODIUM E.R. 500 MG TAB PO SCH (08:32)
[2017-09-02] MEDS: GABAPENTIN 300 MG CAP PO SCH ×3 (08:32→17:16)
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
[2017-09-02] MEDS: NAPROXEN 375 MG TAB PO PRN ×2 (13:42→21:52)
[2017-09-02] MEDS: BACLOFEN 20 MG TAB PO PRN ×2 (13:42→21:53)
[2017-09-02 15:28] VITALS: BP 142/76; PULSE 65; RESP 18; TEMP 97.6; O2SAT 100
[2017-09-02] MEDS: OLANZapine ODT 15 MG TAB PO SCH (21:35)
[2017-09-03] MEDS: ACYCLOVIR 200 MG CAP PO SCH ×3 (05:43→21:12)
[2017-09-03 06:33] VITALS: BP 140/72; PULSE 77; RESP 16; TEMP 98.4; O2SAT 96
[2017-09-03] MEDS: DIVALPROEX SODIUM E.R. 500 MG TAB PO SCH (09:24)
[2017-09-03] MEDS: GABAPENTIN 300 MG CAP PO SCH ×3 (09:25→17:59)
[2017-09-03] MEDS: DIVALPROEX SODIUM E.R. 250 MG TAB PO SCH (09:25)
--- NOTE | 2017-09-03 10:33 | HHI.PYPN ---
Subjective Chief Complaint: "All I need is something for the problems that I have." Remarks Patient seen and examined. Chart reviewed. Case discussed with nursing staff. Case discussed in treatment team. On my examination today, mood continues to stabilize. Thought process more linear although the patient remains somewhat circumstantial. He slept better with increased dose of Zyprexa. He denies side effects from medications. He continues to complain of some back pain, and we discussed titration of gabapentin to target the neuropathic component of his pain. No other physical complaints. Review of Systems Except as stated in HPI: all other systems reviewed are Neg Mental Status Examination Appearance: Appropriate Consciousness: Alert Orientation: x4 Motor Activity: Other (no motor abnormalities noted) Speech: Rapid (more normal rate today) Language: Adequate Fund of Knowledge: Adequate Attention and Concentration: Easily Distracted Memory: Unremarkable Mood: Appropriate Affect: Appropriate Thought Process & Associations: Circumstantial (more linear today) Thought Content: Appropriate Hallucination Type: None Delusion Type: None Suicidal Ideation: No Suicidal Plan: No Suicidal Intention: No Homicidal Ideation: No Homicidal Plan: No Homicidal Intention: No Insight: Adequate Judgment: Adequate Results Labs Test 09/03/17 07:36 Ammonia 42 MCMOL/L Valproic Acid (Depakene) Level 58 MCG/ML Labs reviewed. Depakote level at lower end of therapeutic range and ammonia level mildly elevated without any evidence of hyperammonemic encephalopathy. Vitals/IOs Vital Signs Date Time Temp Pulse Resp B/P (MAP) Pulse Ox O2 Delivery O2 Flow Rate FiO2 09/03/17 06:33 98.4 77 16 140/72 (94) 96 Assessment & Plan Problem List: (1) Bipolar disorder ICD Codes: F31.9 - Bipolar disorder, unspecified Status: Acute Assessment & Plan Titrate Depakote to 1500 mg daily for mood stabilization with plan to check a follow-up Depakote level later in the week. Continue Zyprexa as ordered. Titrate gabapentin to 600 mg 3 times daily for neuropathic component of back pain. Continue to monitor on an inpatient unit. Continue other medications and care as ordered. Justification for Cont. Inpt. Medication changes. Discharge Planning Anticipate discharge by the end of the week. Request HC Surrog/Guard Advoc?: No Problem Qualifiers (1) Bipolar disorder: Qualified Codes: F31.12 - Bipolar disorder, current episode manic without psychotic features, moderate Chaiffetz,Phan B. MD Sep 03, 2017 10:33
[2017-09-03 18:23] VITALS: BP 130/71; PULSE 71; RESP 18; TEMP 98.6; O2SAT 98
[2017-09-03] MEDS: OLANZapine ODT 15 MG TAB PO SCH (21:12)
[2017-09-04 05:54] VITALS: BP 106/60; PULSE 70; RESP 16; TEMP 97.4; O2SAT 96
[2017-09-04] MEDS: ACYCLOVIR 200 MG CAP PO SCH ×3 (06:04→21:20)
[2017-09-04] MEDS: GABAPENTIN 300 MG CAP PO SCH ×3 (08:27→17:09)
[2017-09-04] MEDS: DIVALPROEX SODIUM E.R. 500 MG TAB PO SCH (08:27)
[2017-09-04] MEDS: NAPROXEN 375 MG TAB PO PRN ×2 (09:40→21:20)
--- NOTE | 2017-09-04 11:13 | HHI.PYPN ---
Subjective Chief Complaint: "All I need is something for the problems that I have." Remarks Patient seen and examined with nurse. Chart reviewed. Case discussed with nursing staff. No behavioral issues noted overnight. On my examination today, the patient is quite concerned about weight gain with psychotropics. He was apparently weighed this morning, although it is not yet logged, and he says that he has gained 7 pounds since admission. We discussed the mechanism of weight gain associated with psychotropic medications. The patient says that this degree of weight gain is unacceptable and he wants psychotropic medications to be changed says he will not take them if they continue to cause this degree of weight gain. We discussed his alternatives with respect to psychotropics and settle on the plan as outlined below. I will also consult the dietitian to speak with the patient about his concerns regarding weight gain. Mood is fairly stable today, although the patient once again has a slightly irritable edge. He feels that he is improved but "not fixed" yet. No psychotic symptoms. No SI or HI. Denies side effects other than weight gain from current psychotropics. No new physical complaints. Review of Systems Except as stated in HPI: all other systems reviewed are Neg Mental Status Examination Appearance: Appropriate Consciousness: Alert Orientation: x4 Motor Activity: Other (no abnormal motor movements noted) Speech: Unremarkable Language: Adequate Fund of Knowledge: Adequate Attention and Concentration: Easily Distracted Memory: Unremarkable Mood: Irritable (mild) Affect: Irritable (mild) Thought Process & Associations: Circumstantial Thought Content: Appropriate Hallucination Type: None Delusion Type: None Suicidal Ideation: No Suicidal Plan: No Suicidal Intention: No Homicidal Ideation: No Homicidal Plan: No Homicidal Intention: No Insight: Adequate Judgment: Adequate Results Labs Labs reviewed. Vitals/IOs Vital Signs Date Time Temp Pulse Resp B/P (MAP) Pulse Ox O2 Delivery O2 Flow Rate FiO2 09/04/17 05:54 97.4 70 16 106/60 (75) 96 Intake and Output 09/04/17 09/04/17 09/05/17 08:00 16:00 00:00 Intake Total 360 ml Balance 360 ml Assessment & Plan Problem List: (1) Bipolar disorder ICD Codes: F31.9 - Bipolar disorder, unspecified Status: Acute Assessment & Plan Discontinue Zyprexa, the most likely culprit in patient's complaint of weight gain, and replace with Abilify 15 mg daily. R/B/A discussed with patient for this medication, and I have further counseled him that he may experience some rebound insomnia given that we are discontinuing a fairly sedating medication, namely the Zyprexa. I will continue the Depakote as this is likely contributing to a significantly lesser degree to any weight gain the patient may be experiencing. Calorie restricted diet. Consulted the dietitian. Continue to monitor on the inpatient unit. Continue other medications and care as ordered. Justification for Cont. Inpt. Medication changes. Risk for decompensation in less restrictive environment. Discharge Planning Pending psychiatric stabilization. Possible discharge end of this week or beginning of next week. Request HC Surrog/Guard Advoc?: No Problem Qualifiers (1) Bipolar disorder: Qualified Codes: F31.12 - Bipolar disorder, current episode manic without psychotic features, moderate Phan Ball MD Sep 04, 2017 11:13
[2017-09-04] MEDS: ARIPiprazole 15 MG TAB PO SCH (12:18)
[2017-09-04 18:09] VITALS: BP 131/73; PULSE 76; RESP 18; TEMP 97.5; O2SAT 100
[2017-09-04] MEDS: LORazepam 1 MG TAB PO PRN (21:20)
[2017-09-05] MEDS: diphenhydrAMINE HCL 50 MG CAP PO PRN ×3 (00:12→21:34)
[2017-09-05] MEDS: BACLOFEN 20 MG TAB PO PRN (01:12)
[2017-09-05] MEDS: LORazepam 1 MG TAB PO PRN ×3 (04:39→21:34)
[2017-09-05] MEDS: ACYCLOVIR 200 MG CAP PO SCH ×3 (05:02→22:00)
[2017-09-05 05:24] VITALS: BP 105/61; PULSE 64; RESP 18; TEMP 97.5; O2SAT 97
[2017-09-05] MEDS: DIVALPROEX SODIUM E.R. 500 MG TAB PO SCH (08:58)
[2017-09-05] MEDS: GABAPENTIN 300 MG CAP PO SCH ×3 (08:58→17:35)
[2017-09-05] MEDS: ARIPiprazole 15 MG TAB PO SCH (08:58)
--- NOTE | 2017-09-05 11:36 | HHI.PYPN ---
Subjective Chief Complaint: "All I need is something for the problems that I have." Remarks Patient seen and examined with nurse. Chart reviewed. Case discussed with nursing staff reports that the patient has been more irritable and oppositional today. On my examination today, patient presents as somewhat more anxious compared with yesterday. Speech is a little bit more rambling and rapid. No grandiosity or other symptoms of severe sima. Remains quite fixated on medications causing weight gain, and we discuss that this is a common listed side effect and one that is difficult to avoid among agents utilized for the treatment of bipolar disorder. I reminded the patient that we have switched from Zyprexa to Abilify as the latter agent is less associated with weight gain. I did observe to the patient however that he seemed to be doing better with the Zyprexa and ask that he at least consider switching back. No psychotic symptoms. Denies side effects from medications besides concerns about potential weight gain. No physical complaints. Review of Systems ROS Limitations: Poor Historian Except as stated in HPI: all other systems reviewed are Neg Mental Status Examination Appearance: Appropriate Consciousness: Alert Orientation: x4 Motor Activity: Other (no abnormal motor movements noted) Speech: Rapid Language: Adequate Fund of Knowledge: Adequate Attention and Concentration: Easily Distracted Memory: Unremarkable Mood: Anxious Affect: Anxious Thought Process & Associations: Circumstantial Thought Content: Appropriate Hallucination Type: None Delusion Type: None Suicidal Ideation: No Suicidal Plan: No Suicidal Intention: No Homicidal Ideation: No Homicidal Plan: No Homicidal Intention: No Insight: Adequate Judgment: Adequate Results Labs labs reviewed. No new labs. Vitals/IOs Vital Signs Date Time Temp Pulse Resp B/P (MAP) Pulse Ox O2 Delivery O2 Flow Rate FiO2 09/05/17 05:24 97.5 64 18 105/61 (08) 97 Assessment & Plan Problem List: (1) Bipolar disorder ICD Codes: F31.9 - Bipolar disorder, unspecified Status: Acute Assessment & Plan Patient does not seem to be doing as well with the Abilify as he had done with the Zyprexa. However, patient does not wish to return to Zyprexa and wishes to continue with Abilify for now. Continue titration of Abilify for mood stabilization: 20 mg today and 25 mg tomorrow. Continue Depakote as ordered with plans to check a Depakote level over the weekend. Dietitian input noted and appreciated. Patient is pleased to be on a calorie restricted diet. Continue to monitor on the inpatient unit. Continue other medications and care as ordered. Justification for Cont. Inpt. Medication changes. Risk for decompensation in less restrictive environment. Discharge Planning Pending psychiatric stabilization Request HC Surrog/Guard Advoc?: No Problem Qualifiers (1) Bipolar disorder: Qualified Codes: F31.12 - Bipolar disorder, current episode manic without psychotic features, moderate Phan Ball MD Sep 05, 2017 11:36
[2017-09-05] MEDS ORDERED: ARIPiprazole 5 MG TAB PO ONE (11:45)
[2017-09-05 18:25] VITALS: BP 124/76; PULSE 75; RESP 16; TEMP 97.8; O2SAT 98
[2017-09-05] MEDS: NAPROXEN 375 MG TAB PO PRN (21:38)
[2017-09-06 05:30] VITALS: BP 115/56; PULSE 88; RESP 16; TEMP 97.3; O2SAT 95
[2017-09-06] MEDS: ACYCLOVIR 200 MG CAP PO SCH ×3 (05:57→21:47)
[2017-09-06] MEDS: BACLOFEN 20 MG TAB PO PRN ×3 (05:57→21:48)
[2017-09-06] MEDS: DIVALPROEX SODIUM E.R. 500 MG TAB PO SCH (08:54)
[2017-09-06] MEDS: GABAPENTIN 300 MG CAP PO SCH ×3 (08:55→18:12)
[2017-09-06] MEDS ORDERED: ARIPiprazole 10 MG TAB PO SCH (09:00)
--- NOTE | 2017-09-06 09:11 | HHI.PYPN ---
Subjective Chief Complaint: "All I need is something for the problems that I have." Remarks Patient seen and examined with nurse. Chart reviewed. Case discussed with nursing staff. Case discussed in treatment team. On my examination today, patient is less irritable. Speech is less rapid but still somewhat overinclusive. He notes that he slept a little better last night. He is pleased to have met with the dietitian and seems less fixated on the potential for weight gain with psychotropic medications. Denies side effects from medications. No new physical complaints. Review of Systems Except as stated in HPI: all other systems reviewed are Neg Mental Status Examination Appearance: Appropriate Consciousness: Alert Orientation: x4 Motor Activity: Other (no motoric abnormalities appreciated) Speech: Unremarkable Language: Adequate Fund of Knowledge: Adequate Attention and Concentration: Easily Distracted Memory: Unremarkable Mood: Anxious (less so) Affect: Anxious (less so) Thought Process & Associations: Circumstantial (more organized) Thought Content: Appropriate Hallucination Type: None Delusion Type: None Suicidal Ideation: No Suicidal Plan: No Suicidal Intention: No Homicidal Ideation: No Homicidal Plan: No Homicidal Intention: No Insight: Adequate Judgment: Adequate Results Labs Labs reviewed. No new labs. Vitals/IOs Vital Signs Date Time Temp Pulse Resp B/P (MAP) Pulse Ox O2 Delivery O2 Flow Rate FiO2 09/06/17 05:30 97.3 88 16 115/56 (75) 95 Assessment & Plan Problem List: (1) Bipolar disorder ICD Codes: F31.9 - Bipolar disorder, unspecified Status: Acute Assessment & Plan Titrate Abilify to 30 mg over the weekend for mood stabilization. Continue Depakote as ordered and plan to obtain a Depakote level over the weekend. Dietitian input noted and appreciated. Continue to monitor on the inpatient unit. Continue other medications and care as ordered. Justification for Cont. Inpt. Medication changes. Risk for decompensation in less restrictive environment. Discharge Planning Possible discharge after the weekend. Request HC Surrog/Guard Advoc?: No Problem Qualifiers (1) Bipolar disorder: Qualified Codes: F31.12 - Bipolar disorder, current episode manic without psychotic features, moderate Phan Ball MD Sep 06, 2017 09:11
[2017-09-06 18:04] VITALS: BP 133/69; PULSE 74; RESP 16; TEMP 97.3; O2SAT 98
[2017-09-06] MEDS: LORazepam 1 MG TAB PO PRN (21:48)
[2017-09-06] MEDS: diphenhydrAMINE HCL 50 MG CAP PO PRN (21:48)
[2017-09-06] MEDS: NAPROXEN 375 MG TAB PO PRN (21:48)
[2017-09-07 05:30] VITALS: BP 106/54; PULSE 65; RESP 16; TEMP 97.6; O2SAT 96
[2017-09-07] MEDS: ACYCLOVIR 200 MG CAP PO SCH ×3 (06:00→22:00)
[2017-09-07] MEDS: DIVALPROEX SODIUM E.R. 500 MG TAB PO SCH (09:33)
[2017-09-07] MEDS: ARIPiprazole 30 MG TAB PO SCH (09:33)
[2017-09-07] MEDS: GABAPENTIN 300 MG CAP PO SCH ×3 (09:34→17:42)
[2017-09-07] MEDS: BACLOFEN 20 MG TAB PO PRN ×2 (14:13→22:04)
--- NOTE | 2017-09-07 14:23 | HHI.PYPN ---
Subjective Chief Complaint: "All I need is something for the problems that I have." Remarks Patient was seen and case discussed with nursing. Patient remains perseverative on diet and weight gain during the interview. He is convinced that his psychotropic medications made him gain 10 pounds in one week. Psychoeducation was done but patient remains resistant. Affect is quite irritable thought process mildly disorganized. Denies auditory visual hallucinations Mental Status Examination Appearance: Appropriate Consciousness: Alert Orientation: x4 Motor Activity: Other (no motoric abnormalities appreciated) Speech: Unremarkable Language: Adequate Fund of Knowledge: Adequate Attention and Concentration: Easily Distracted Memory: Unremarkable Mood: Anxious (less so) Affect: Anxious (less so) Thought Process & Associations: Circumstantial (more organized), Other ( perseverative) Thought Content: Appropriate Hallucination Type: None Delusion Type: None Suicidal Ideation: No Suicidal Plan: No Suicidal Intention: No Homicidal Ideation: No Homicidal Plan: No Homicidal Intention: No Insight: Adequate Judgment: Adequate Results Vitals/IOs Vital Signs Date Time Temp Pulse Resp B/P (MAP) Pulse Ox O2 Delivery O2 Flow Rate FiO2 09/07/17 05:30 97.6 65 16 106/54 (71) 96 Assessment & Plan Problem List: (1) Bipolar disorder ICD Codes: F31.9 - Bipolar disorder, unspecified Status: Acute Assessment & Plan Continue current treatment plan Justification for Cont. Inpt. Patient will decompensate in a less restrictive setting Request HC Surrog/Guard Advoc?: No Problem Qualifiers (1) Bipolar disorder: Qualified Codes: F31.12 - Bipolar disorder, current episode manic without psychotic features, moderate Hai Vela DO Sep 07, 2017 14:23
[2017-09-07 19:31] VITALS: BP 112/71; PULSE 89; RESP 16; TEMP 97.7; O2SAT 99
[2017-09-07] MEDS: LORazepam 1 MG TAB PO PRN (22:04)
[2017-09-07] MEDS: NAPROXEN 375 MG TAB PO PRN (22:04)
[2017-09-08 05:07] VITALS: BP 126/68; PULSE 66; RESP 18; TEMP 98.1; O2SAT 97
[2017-09-08] MEDS: ACYCLOVIR 200 MG CAP PO SCH ×3 (06:00→21:06)
[2017-09-08] MEDS: BACLOFEN 20 MG TAB PO PRN ×3 (06:24→22:20)
[2017-09-08] MEDS: DIVALPROEX SODIUM E.R. 500 MG TAB PO SCH (08:15)
[2017-09-08] MEDS: ARIPiprazole 30 MG TAB PO SCH (08:15)
[2017-09-08] MEDS: GABAPENTIN 300 MG CAP PO SCH ×3 (08:15→18:36)
--- NOTE | 2017-09-08 10:50 | HHI.PYPN ---
Subjective Chief Complaint: "All I need is something for the problems that I have." Remarks Patient was seen and case discussed with nursing. Patient is complaining of nightmares last night. He remains very perseverative on his diet and is convinced that his medications are the cause. Later he complained that he is not getting enough food and is asking for a happy medium. Denies suicidal or homicidal ideation intent or plan. Behaving well on the unit Mental Status Examination Appearance: Appropriate Consciousness: Alert Orientation: x4 Motor Activity: Other (no motoric abnormalities appreciated) Speech: Unremarkable Language: Adequate Fund of Knowledge: Adequate Attention and Concentration: Easily Distracted Memory: Unremarkable Mood: Anxious (less so) Affect: Anxious (less so) Thought Process & Associations: Circumstantial (more organized), Disorganized, Other (perseverative) Thought Content: Appropriate Hallucination Type: None Delusion Type: None Suicidal Ideation: No Suicidal Plan: No Suicidal Intention: No Homicidal Ideation: No Homicidal Plan: No Homicidal Intention: No Insight: Adequate Judgment: Adequate Results Labs Test 09/08/17 07:07 Ammonia 56 MCMOL/L Valproic Acid (Depakene) Level 80 MCG/ML Vitals/IOs Vital Signs Date Time Temp Pulse Resp B/P (MAP) Pulse Ox O2 Delivery O2 Flow Rate FiO2 09/08/17 05:07 98.1 66 18 126/68 (87) 97 Intake and Output 09/08/17 09/08/17 09/09/17 08:00 16:00 00:00 Intake Total 480 ml Balance 480 ml Assessment & Plan Problem List: (1) Bipolar disorder ICD Codes: F31.9 - Bipolar disorder, unspecified Status: Acute Assessment & Plan Continue current treatment plan Justification for Cont. Inpt. Patient will decompensate in a less restrictive setting Request HC Surrog/Guard Advoc?: No Problem Qualifiers (1) Bipolar disorder: Qualified Codes: F31.12 - Bipolar disorder, current episode manic without psychotic features, moderate Hai Vela DO Sep 08, 2017 10:50
[2017-09-08 16:56] VITALS: BP 131/62; PULSE 69; RESP 18; TEMP 97.6; O2SAT 98
[2017-09-08 18:21] VITALS: BP 131/67; PULSE 69; RESP 18; TEMP 97.6; O2SAT 98
[2017-09-08] MEDS: diphenhydrAMINE HCL 50 MG CAP PO PRN (21:06)
[2017-09-08] MEDS: NAPROXEN 375 MG TAB PO PRN (22:06)
[2017-09-09] MEDS: ACYCLOVIR 200 MG CAP PO SCH (05:35)
[2017-09-09 06:35] VITALS: BP 116/61; PULSE 72; RESP 18; TEMP 98.2; O2SAT 97
[2017-09-09] MEDS: ARIPiprazole 30 MG TAB PO SCH (08:29)
[2017-09-09] MEDS: DIVALPROEX SODIUM E.R. 500 MG TAB PO SCH (08:30)
[2017-09-09] MEDS: GABAPENTIN 300 MG CAP PO SCH (08:30)
[2017-09-09] MEDS ORDERED: DEPA500T3 PO (09:21)
[2017-09-09] MEDS ORDERED: BACL20TA PO (09:21)
[2017-09-09] MEDS ORDERED: NEUR300C PO (09:21)
[2017-09-09] MEDS ORDERED: ARIP1TAB15 PO (09:21)
[2017-09-09] MEDS ORDERED: ACYC200C66 PO (09:21)
--- NOTE | 2017-09-09 09:21 | HHI.DS ---
Psychiatry Discharge Summary Inpatient Psychiatric care?: Yes Advance Directive: No Reason Not Provided: Declined Mental Health AdvanceDirective: No Health Care Proxy: No Admission Admission Date Aug 29, 2017 at 14:13 Admission Diagnosis: (1) Bipolar 1 disorder, manic, moderate ICD Code: F31.12 - Bipolar disorder, current episode manic without psychotic features, moderate Brief History Mr. Vazquez is a 61-year-old male with a reported history of bipolar disorder who presented to the emergency department voluntarily for psychiatric evaluation. He was evaluated by the psychiatric nurse practitioner who recommended admission to the inpatient psychiatric unit. Reviewing the electronic medical record, I note this is patient's first visit to [place]. Patient seen and examined. Chart reviewed. Case discussed with nursing staff. On my examination today, the patient is quite irritable and somewhat oppositional. His speech is rapid and difficult to interrupt. His thought process is tangential with loosening of associations. He says of his mood state "it's worse than it's ever been." He complains of feeling "disconnected. " He reports poor sleep. Possibly some increased goal-directed activity. Denies any SI or HI. Denies any AVH. No delusional material elicited. No depressive symptoms. The remainder of the psychiatric ROS is negative. Complains of chronic back pain and herpes labialis. No other physical complaints. Past psychiatric history: The patient reports a history of bipolar disorder. He reports that he has been away from outpatient psychiatric treatment for several months, most recently in [place]. He denies a history of psychiatric admissions or suicide attempts. Patient is unsure of previous medication trials. We were unable to obtain medication list from pharmacy in [place] which included Cymbalta, trazodone, Ambien and Klonopin, although the patient has apparently not taken psychotropic medications in several months at least. Family history: The patient reports that his mother has some sort of mental illness although he is unsure of the diagnosis. No reported family history of suicide. Chemical dependency history: The patient reports that he quit drinking in 1992. He denies any substance use presently. Social history: Patient is presently living alone. He is single with no children. He denies any access to guns or firearms. He denies any or legal history. Tobacco Use In Past 30 Days: No Tobacco Past 30 Days Alcohol Use: Never Hospital Course Patient was admitted to a locked, inpatient psychiatric unit. A general medical consultation was obtained. Appropriate precautions were in place throughout patient's hospital stay. Patient was seen and examined on the unit by psychiatry and also visited by counselor. Psychotropic medications were adjusted. Patient tolerated medication changes well without side effects besides possibly some weight gain, and the patient was switched from Zyprexa to Abilify to lessen the liability for weight gain from psychotropics and a dietitian consult was obtained. Patient had improvement in his presenting psychiatric symptomatology during the course of his hospital stay. There was no evidence of any suicidality or homicidality on the inpatient unit. The patient's behavior improved with the benefit of pharmacologic treatment. On the day of discharge: Patient seen and examined with nurse. Chart reviewed. Case discussed with nursing staff. No behavioral issues noted overnight. Case discussed with counselor. On my examination today, the patient is requesting discharge from the inpatient psychiatric unit today. He denies any suicidal or homicidal ideation, intent or plan on direct questioning and contracts for safety. Mood is stable, and I can elicit no depressive or hypomanic/manic symptoms in this patient at this time. He denies any audiovisual hallucinations. I can elicit no delusional material. There is no evidence of any impairment in reality construction. Patient denies side effects from medications. No signs of hyperammonemic encephalopathy. I did discuss with the patient his elevated ammonia level and offered lactulose or Carnitor to manage this laboratory abnormality even though he is having no symptoms from it , but the patient declines addition of such an agent at this time. He has no acute physical complaints. Suicide and violence risk assessment on day of discharge both suggest lower imminent risk, and the patient's level of function is adequate for outpatient care. The patient has maximized benefit from this inpatient psychiatric hospital stay. He will be discharged home today with psychiatric follow-up as arranged by counselor. Patient is also to follow-up with primary care. I have counseled the patient to abstain from substances of abuse. I have counseled the patient regarding warning signs for need to return to the psychiatric emergency room as part of a general safety plan. Results Blood Pressure 116 / 61 Vital Signs Date Time Temp Pulse Resp B/P (MAP) Pulse Ox O2 Delivery O2 Flow Rate FiO2 09/09/17 06:35 98.2 72 18 116/61 (79) 97 Laboratory Tests Test 09/08/17 07:07 Ammonia 56 MCMOL/L (11-32) Laboratory Results Test 08/30/17 08:50 09/08/17 07:07 Cholesterol Level 153 MG/DL (120-200) HDL Cholesterol 34.0 MG/DL (40.0-60.0) Hemoglobin A1c 4.9 % (4.3-6.0) LDL Cholesterol 71 MG/DL (0-99) Triglycerides Level 238 MG/DL (42-150) Valproic Acid (Depakene) Level 80 MCG/ML (50-100) Summary of Procedures None done Imaging Last Impressions Head CT 08/28/17 0000 Signed Impressions: Service Date/Time: Monday, August 28, 2017 18:24 - CONCLUSION: 1. Negative noncontrast CT brain. Stewart Mondragon MD Pending results at discharge: No Medications # of Antipsychotic meds at D/C: 1 Approp Antipsych med options 1 - Minimum of three failed multiple trials of monotherapy. 2 - Documented plan to taper to monotherapy due to previous use of multiple meds OR cross-taper in progress at D/C. 3 - Documentation of augmentation of Clozapine. 4 - Justification other than those listed in allowable values 1-3, document here : Discharge Discharge Date: Sep 09, 2017 Discharge Diagnosis: (1) Bipolar disorder, in full remission, most recent episode manic Diagnosis: Principal ICD Code: F31.74 - Bipolar disorder, in full remission, most recent episode manic Pt Condition on Discharge: Stable Discharge Disposition: Discharge Home Discharge Instructions Diet Instructions: Calorie Counting Diet Activities you can perform: Weight Bearing as Kamlesh Scheduled Appointment: as per counselor's notes New Orders: AMMONIA - 1 Week VITAMIN D,25-HYDROXY - 2 Months New Medications: Cholecalciferol (Vitamin D-400) 400 Unit Tab 400 UNITS PO DAILY for Nutritional Supplement, #1 BOTTLE 0 Refills Acyclovir (Acyclovir) 200 Mg Cap 400 MG PO Q8HR for Health for 15 Days, CAP 1 Refill Aripiprazole (Aripiprazole) 30 Mg Tab 30 MG PO DAILY for Mental Health for 15 Days, #15 TAB 1 Refill Baclofen (Baclofen) 20 Mg Tab 10 MG PO Q8H PRN for SPASM for 15 Days, #23 TAB 1 Refill Divalproex ER (Depakote ER) 500 Mg Nato 1500 MG PO DAILY for Mental Health for 15 Days, #45 TAB 1 Refill Gabapentin (Neurontin) 300 Mg Cap 600 MG PO TID for Health for 15 Days, CAP 1 Refill Discharge Time <= 30 minutes Mental Status Examination Appearance: Appropriate Consciousness: Alert Orientation: x4 Motor Activity: Normal gait, Other (no abnormal motor movements noted) Speech: Unremarkable Language: Adequate Fund of Knowledge: Adequate Attention and Concentration: Adequate Memory: Unremarkable Mood: Appropriate Affect: Appropriate Thought Process & Associations: Intact, Logical, Goal directed, Linear Thought Content: Appropriate Hallucination Type: None Delusion Type: None Suicidal Ideation: No Suicidal Plan: No Suicidal Intention: No Homicidal Ideation: No Homicidal Plan: No Homicidal Intention: No Insight: Adequate Judgment: Adequate Discharge/Advance Care Plan Health Problems: (1) Bipolar disorder Goals to promote your health * To prevent worsening of your condition and complications * To maintain your health at the optimal level Directions to meet your goals Take your medications as prescribed Follow your dietary instruction Follow activity as directed Keep your appointments as scheduled Take your immunizations and boosters as scheduled If your symptoms worsen call your PCP, if no PCP go to Urgent Care Center or Emergency Room For 14/01 questions related to your inpatient stay or results of tests pending at discharge, please contact Dr. Phan Ball at Smoking is Dangerous to Your Health. Avoid second hand smoking Phan Ball MD Sep 09, 2017 09:21
[2017-09-09] MEDS ORDERED: VITATAB56 PO (09:23)
== END 2017-09-09 11:20 | disposition home or self-care (01) | DRG 885 ==
LOC: NEPD 13:45 → NEDA 08-29 14:13 → H260 08-29 15:36
PROVIDERS: ADMIT Psychiatry & Neurology Psychiatry; ATTEND Psychiatry & Neurology Psychiatry
DX: F31.12 Bipolar disorder, current episode manic without psychotic features, moderate (principal); B00.1 Herpesviral vesicular dermatitis; F41.9 Anxiety disorder, unspecified; F10.21 Alcohol dependence, in remission; M54.9 Dorsalgia, unspecified; M54.2 Cervicalgia; G89.29 Other chronic pain; Z79.899 Other long term (current) drug therapy; Z23 Encounter for immunization
CPT/HCPCS: 70450; 80048; 80053; 80061; 80164; 80307; 82140; 82306; 82607; 83036; 84443; 85025; 90686; 90732; 93005; 96372; 99285; J2060; Q0163; Q2038